=== PATIENT | male | born 1995 ===

== ENCOUNTER 2021-06-21 17:30 | Inpatient (IN) ==
[2021-06-21 18:40] LABS: ABS Eosinophils 0.1 10^3/ul (0-0.6); ABS Lymphocytes 2.1 10^3/ul (1.0-4.8); ABS Monocytes 0.5 10^3/ul (0-0.8); ABS Neutrophils 4.5 10^3/ul (1.5-7.7); Eosinophil % 0.9 %; Hematocrit 45 % (42-52); Hemoglobin 15.3 g/dL (14.0-18.0); Lymphocyte % 29.1 %; Mean Corpuscular HGB Conc 34 g/dL (31-36); Mean Corpuscular Hemoglobin 30 pg (27-31); Mean Corpuscular Volume 88 fL (80-94); Mean Platelet Volume 7.8 fL (7.4-10.4); Platelet Count 218 10^3/uL (150-450); Red Blood Count 5.17 10^6 /uL (4.18-5.48); Red Cell Distribution Width 14 % (10-15); White Blood Count 7.2 10^3/uL (3.5-10.8)
[2021-06-21 18:52] LABS: Urine Appearance Clear; Urine Bilirubin Negative (Negative); Urine Blood Negative (Negative); Urine Color Yellow; Urine Glucose Negative (Negative); Urine Ketones Trace (Negative); Urine Nitrite Negative (Negative); Urine Protein 1+(30 mg/dL) (Negative); Urine Specific Gravity 1.027 (1.002-1.030); Urine Urobilinogen Negative (Negative)
[2021-06-21 18:59] LABS: ALT 30 U/L (7-52); AST 20 U/L (13-39); Albumin 4.5 g/dL (3.2-5.2); Albumin/Globulin Ratio 1.5 (1-3); Alkaline Phosphatase 107 U/L (35-149); Anion Gap 8 mmol/L (2-11); Blood Urea Nitrogen 14 mg/dL (6-24); CO2 Carbon Dioxide 25 mmol/L (22-32); Calcium 9.5 mg/dL (8.6-10.3); Chloride 104 mmol/L (101-111); Glucose 155 mg/dL (70-100); Potassium 3.7 mmol/L (3.5-5.0); Sodium 137 mmol/L (135-145); Total Protein 7.5 g/dL (6.4-8.9); eGFR CKD-EPI 121.3 (>60)
[2021-06-21 18:59] LABS: Urine Bacteria Absent (Absent); Urine Red Blood Cell Absent (Absent); Urine White Blood Cell Absent (Absent)
[2021-06-21 19:04] LABS: Acetaminophen < 15 mcg/mL; Alcohol, S < 13 mg/dL (<13); Salicylate < 2.50 mg/dL (<30)
[2021-06-21 19:04] LABS: Urine Benzodiazepine Screen None Detected (None Detect); Urine Cannabinoids Screen None Detected (None Detect); Urine Opiates Screen None Detected (None Detect)
[2021-06-21 19:19] LABS: TSH Ultra Thyroid Stim Horm 1.08 mcIU/mL (0.34-5.60)
[2021-06-22] MEDS ORDERED: Al Hydrox/Mg Hydrox/Simet LIQ 30 ML UDC PO PRN (06:35)
[2021-06-22] MEDS: Nicotine GUM 2MG FRUIT FLAVOR PO PRN (08:47)
[2021-06-22] MEDS: Vitamin THERAPEUTIC TAB PO SCH (08:47)
[2021-06-22] MEDS: Nicotine PATCH 14 MG/24 HR PATCH TRANSDERM SCH (08:49)
[2021-06-22] MEDS ORDERED: DULoxetine DR 30 mg CAP PO SCH (09:00)
[2021-06-23] MEDS: DULoxetine DR 30 mg CAP PO SCH (08:40)
[2021-06-23] MEDS: Vitamin THERAPEUTIC TAB PO SCH (08:41)
[2021-06-23] MEDS: Nicotine PATCH 14 MG/24 HR PATCH TRANSDERM SCH (08:41)
[2021-06-23] MEDS: Nicotine GUM 2MG FRUIT FLAVOR PO PRN (08:42)
[2021-06-23] MEDS ORDERED: Flu vaccine *QUAD* 2021-22* 0.5 ML SYRINGE IM ONE (09:00)
[2021-06-24] MEDS: DULoxetine DR 30 mg CAP PO SCH (08:12)
[2021-06-24] MEDS: Vitamin THERAPEUTIC TAB PO SCH (08:12)
[2021-06-24] MEDS: Nicotine GUM 2MG FRUIT FLAVOR PO PRN (08:13)
[2021-06-24] MEDS: Nicotine PATCH 14 MG/24 HR PATCH TRANSDERM SCH (11:03)
[2021-06-25 07:35] LABS: HDL Cholesterol 31.2 mg/dL
[2021-06-25] MEDS: Vitamin THERAPEUTIC TAB PO SCH (08:45)
[2021-06-25] MEDS: Nicotine GUM 2MG FRUIT FLAVOR PO PRN ×2 (08:46→11:03)
[2021-06-25] MEDS: Nicotine PATCH 14 MG/24 HR PATCH TRANSDERM SCH (11:41)
[2021-06-26] MEDS: Vitamin THERAPEUTIC TAB PO SCH (08:31)
[2021-06-26] MEDS: Nicotine GUM 2MG FRUIT FLAVOR PO PRN (08:32)
[2021-06-26 09:33] VITALS: BP 124/67
[2021-06-26] MEDS: Nicotine PATCH 14 MG/24 HR PATCH TRANSDERM SCH (09:37)
== END 2021-06-26 12:00 | DRG 751 ==
LOC: ED 17:30 → BSU 22:03
PROVIDERS: ADMIT Psychiatry & Neurology Psychiatry; ATTEND Psychiatry & Neurology Psychiatry